=== PATIENT | female | born 1995 | race Caucasian/White ===

== ENCOUNTER 2017-01-27 21:19 | Outpatient (CLI) | payer MEDICAID, OTHER ==
[2017-01-27 22:28] LABS: ADD UMIC YES; UR ASCORBIC ACID NEGATIVE (NEGATIVE); UR BACTERIA FEW /HPF (NONE SEEN); UR BILIRUBIN (Dip) NEGATIVE (NEGATIVE); UR BLOOD (Dip) NEGATIVE (NEGATIVE); UR CLARITY CLOUDY (CLEAR); UR COLOR YELLOW (YELLOW); UR GLUCOSE (Dip) NEGATIVE (NEGATIVE); UR KETONES (Dip) NEGATIVE (NEGATIVE); UR LEUKOCYTE ESTERASE (Dip) 1+ Leu/ul (NEGATIVE); UR MUCUS FEW /HPF (NONE SEEN); UR NITRITE (Dip) POSITIVE (NEGATIVE); UR RBC 2 /HPF (0-5); UR SQUAMOUS EPITHELIAL CELL FEW /HPF (FEW); UR TOTAL PROTEIN (Dip) NEGATIVE (NEGATIVE); UR UROBILINOGEN (Dip) NEGATIVE (NEGATIVE)
--- NOTE | 2017-01-27 22:34 | RADRPT ---
AMENDMENT: 01/28/2017 12:49:42 AM Anthony Moctezuma M.D IVA: 18.0 cm PROCEDURE: US OB. CLINICAL INDICATION: labor at 27 weeks gestational age. TECHNIQUE: Multiple sonographic images of the uterus were obtained. Transvaginal sonogra phy of the cervix was also performed. The images were reviewed on a PACS workstation. COMPARISON: No prior studies are available for comparison. FINDINGS: There is a single live intrauterine gestation. heart rate is 146 beats per minute. Measurements were made in order to determine age. The results are as follows: BPD = 8.21 cm. HC = 29.73 cm. AC = 28.69 cm. FL = 6.43 cm. Estimated weight is 2074 +/- 311 grams. LMP growth percentile is greater than 97 %. Cervical length is 2.0 cm. Menstrual age by ultrasound dates is 33 weeks 0 days. The estimated date of delivery is 03/17/2017. Position is breech and placenta is anterior grade II. There is no evidence for an abruption or place nta previa. IMPRESSION: 1. Single live intrauterine gestation of 33 weeks 0 days menstrual age by ultrasound dates. 2. The estimated date of delivery is 03/17/2017. 3. Cervical length is 2.0 cm. RPTAT: QQ .Anthony Moctezuma MD, MD Date Time Electronically viewed and signed by .Anthony Moctezuma MD, on 01/28/2017 00:50 .R/
[2017-01-27 22:50] LABS: BARBITURATES Negative (NEGATIVE); BENZODIAZEPINES Negative (NEGATIVE); CANNABINOIDS Negative (NEGATIVE); COCAINE Negative (NEGATIVE); OPIATES Negative (NEGATIVE)
[2017-01-27] MEDS ORDERED: NIFEdipine 10 MG CAP PO ONE (23:30)
--- NOTE | 2017-01-28 00:12 | QN ---
Documentation Comment ipu 27 weeks g1 poor care LOF vss exam wnl rom neg uti a/p iup 33 weeks uti-macrobid dc home office monday CLYDE CINTRON MD Jan 28, 2017 00:12
--- NOTE | 2017-01-28 01:24 | TRIAGE ---
OB Triage Datetime Report Generated by CPN: 01/28/2017 01:24 Datetime: 01/28/2017 01:09 EGA: 33.0 Datetime: 01/27/2017 21:30 Time of Arrival: 01/27/2017 21:09 EGA: 27.1 Arrived By: Wheelchair Arrived From: Home Chief Complaint: c/o "large gush fluid x1 at 0545" and upper abd pain. Denies hx problems th is but states only 1 visit 3 months ago d/t clinic not giving appts though called Movement: Present Contractions: Denies/Absent Rupture of Membranes: Unsure Vaginal Bleeding: None Vaginal Discharge: Present Recent Sexual Intercouse: Denies Abdominal Trauma: Not Applicable Patient Complaints: Other Time Provider Notified: 01/27/2017 21:40 Provider Notified: Dr Smith Initial Plan: EFM,UA,ROM+, EFW,IVA,SVE, urine tox
== END 2017-01-28 00:52 | disposition home or self-care (01) ==
LOC: OBT 21:19 → L-D 21:21 → OBT 01-28 00:52
DX: O23.42 Unspecified infection of urinary tract in pregnancy, second trimester (principal); Z3A.27 27 weeks gestation of pregnancy
CPT/HCPCS: 76815; 76817; 80307; 81001; 84112; G0463

== ENCOUNTER 2017-03-03 16:10 | Outpatient (CLI) | payer MEDICAID ==
[~2017-03-03] VITALS: Ht 157.5 cm; Wt 65.4 kg
[2017-03-03 16:26] VITALS: Ht 157.5 cm; Wt 65.4 kg
[2017-03-03 16:27] VITALS: BP 124/66; PULSE 93; RESP 20
--- NOTE | 2017-03-03 16:39 | RADRPT ---
PROCEDURE: Obstetrical ultrasound CLINICAL INDICATION: Size and dates, no care TECHNIQUE: Multiple sonographic images of the pelvis were obtained. The images were reviewed on a PACS workstation. COMPARISON: None FINDINGS: The cervix is not well visualized. There is a single viable intrauterine gestation. Cardiac activity is present with 139 beats per minute. There is a breech presentation. The placenta is anterior. There is no evidence for an abruption or placenta previa. There is a subjectively normal amount of amniotic fluid. Measurements were made in order to determine age. The results are as follows (cm): BPD =9.25 HC =33.11 AC =33.70 FL =7.28 Estimated gestational age by ultrasound of approximately 37 weeks, 4 days. The estimated date of delivery by ultrasound is 03/20/2017. Estimated gestational age by LMP of approximately 38 weeks, 0 days. The estimated date of delivery by LMP is 03/17/2017. EFW = 3238 grams (50th percentile) The three-vessel cord is visualized and without abnormality. IMPRESSION: Single viable intrauterine gestation of approximately 37 weeks, 4 days . The estimated date of delivery is 03/20/2017 . Dating by ultrasound is within 3 days of dating by LMP. Breech presentation. Estimated weight is in the 50th percentile. RPTAT: EE Physician Chayo Date Time Electronically viewed and signed by Physician Chayo on 03/03/2017 16:38 /
--- NOTE | 2017-03-03 16:39 | RADRPT ---
PROCEDURE: US OB biophysical profile. CLINICAL INDICATION: evaluation TECHNIQUE: Multiple sonographic images of the pelvis were obtained. The images were reviewed on a PACS workstation. COMPARISON: No prior studies are available for comparison. FINDINGS: There is a single viable intrauterine gestation. Cardiac activity is present with 143 beats per min parul. There is a breech presentation. The placenta is anterior. There is no evidence of placental abruption. There is a normal amount of amniotic fluid with an IVA = 12.9 cm. Biophysical profile: movement 2/2 tone 2/2. breathing 2/2 IVA 2/2 Total 12/13 RPTAT: AA . IMPRESSION: Normal biophysical profile. Breech presentation. Physician Chayo Date Time Electronically viewed and signed by Physician Chayo on 03/03/2017 16:39 RA/
[2017-03-03] MEDS ORDERED: PNV11TAB PO (16:42)
--- NOTE | 2017-03-03 17:17 | PN ---
Triage Information Date/Time 03/03/2017 1700 Reason for visit: IUGR Weeks of Gestation 38+ /Para Diabetes: none Objective Vital Signs Date Time Temp Pulse Resp B/P Pulse Ox O2 Delivery O2 Flow Rate FiO2 03/03/17 16:27 98.5 93 20 124/66 Room Air Heart Rate: 140's Heart Rate Comments Reactive Contractions: None Exam differed Results/Medications Imaging Results Single viable intrauterine gestation of approximately 37 weeks, 4 days . The estimated date of delivery is 03/20/2017 . Dating by ultrasound is within 3 days of dating by LMP. Disposition: Discharge Assessment/Plan Follow up in clinic JUS TORRES MD Mar 03, 2017 17:17
--- NOTE | 2017-03-03 18:01 | TRIAGE ---
OB Triage Datetime Report Generated by CPN: 03/03/2017 18:01 Datetime: 03/03/2017 17:08 Stage of : OB Triage Datetime: 03/03/2017 16:55 Stage of : OB Triage Datetime: 03/03/2017 16:47 Stage of : OB Triage Datetime: 03/03/2017 16:38 Stage of : OB Triage Assessment Type: Triage Maternal Assessment Level of Consciousness: Fully Conscious DTR's/Clonus: DTRs 2+; No Clonus Headache: Denies Blurred Vision: No Respiratory Effort: Unlabored; Regular Rhythm; Equal Expansion Breath Sounds, Left: Clear and Equal Breath Sounds, Right: Clear and Equal Nausea/Vomiting: Denies RUQ Epigastric Pain: Denies Facial Edema: None Temperature Route: Axillary Fall Risk Assessment History of Falling: (0) No Secondary Diagnosis: (0) No Ambulatory Aid: (0) Bedrest/Nurse Assist IV Therapy: (0) No Gait: (0) Normal/Bedrest/Immobile Mental Status: (0) Oriented to Own Ability Fall Score: 0 Fall Risk Score Definition: No Risk: No action required Labor Evaluation Frequency: 0 Monitor Mode: External Pattern: Normal: <= 5 Contractions in 10 Minutes Resting Tone [place]: Relaxed Heart Rate FHR Baseline Rate: 135 Monitor Mode: External US Variability: Moderate 6-25 bpm Accelerations: 10X10 Decelerations: None Category: Category I Pain Assessment Pain Scale: 0 Pain Presence: None/Denies Pain Type: N/A Pain Goal: 3 Pain Relief Measures: Comfort Measures Datetime: 03/03/2017 16:36 Time of Arrival: 02/24/2017 16:00 EGA: 37.0 Arrived By: Ambulatory Arrived From: Home Chief Complaint: SENT IN FROM DR OFFICE NO PNC, BPP, EFW, DENIES LEAKING, BLEEDING, OR UC'S Movement: Present Contractions: Denies/Absent Rupture of Membranes: Denies Vaginal Bleeding: None Vaginal Discharge: Denies Recent Sexual Intercouse: Yes Abdominal Trauma: Not Applicable Patient Complaints: None Time Provider Notified: 03/03/2017 17:10 Provider Notified: dell Initial Plan: MONITOR, BPP, EFW Datetime: 01/28/2017 01:09 EGA: 33.0 Datetime: 01/28/2017 00:41 Stage of : OB Triage Monitor Mode: External Quality: Mild Pattern: Normal: <= 5 Contractions in 10 Minutes Resting Tone [place]: Relaxed Heart Rate FHR Baseline Rate: 140 Monitor Mode: External US FHR Baseline Changes: No Baseline Change Variability: Moderate 6-25 bpm Decelerations: None Category: Category I Pain Assessment Pain Scale: 1 Pain Presence: Intermittent Pain Type: Cramping Pain Location: Abdomen Datetime: 01/27/2017 23:43 Stage of : OB Triage Monitor Mode: External Quality: Mild Pattern: Normal: <= 5 Contractions in 10 Minutes Resting Tone [place]: Relaxed Heart Rate FHR Baseline Rate: 140 Monitor Mode: External US FHR Baseline Changes: No Baseline Change Variability: Moderate 6-25 bpm Accelerations: 15X15 Decelerations: None Category: Category I Datetime: 01/27/2017 22:51 Stage of : OB Triage Heart Rate FHR Baseline Rate: 150 Monitor Mode: External US FHR Baseline Changes: No Baseline Change Variability: Moderate 6-25 bpm Accelerations: 15X15 Decelerations: None Category: Category I Datetime: 01/27/2017 22:00 Vaginal Exam Amniotic Fluid Amount: None Amniotic Fluid Odor: None Pool: Negative Nitrazine: Negative Datetime: 01/27/2017 21:55 Stage of : OB Triage Labor Evaluation Frequency: 1-3 Monitor Mode: External Duration (sec)2399: 20-50 Quality: Mild Pattern: Normal: <= 5 Contractions in 10 Minutes Resting Tone [place]: Relaxed Heart Rate FHR Baseline Rate: 150 Monitor Mode: External US FHR Baseline Changes: No Baseline Change Variability: Moderate 6-25 bpm Accelerations: 15X15 Decelerations: None Category: Category I Datetime: 01/27/2017 21:40 Stage of : OB Triage Datetime: 01/27/2017 21:30 Stage of : OB Triage EGA: 27.1 Maternal Assessment Level of Consciousness: Fully Conscious Headache: Denies Blurred Vision: No Nausea/Vomiting: Denies RUQ Epigastric Pain: Denies Facial Edema: None Labor Evaluation Frequency: placed Monitor Mode: External Resting Tone [place]: Relaxed Monitor Mode: External US Comments: FHT 140 Pain Assessment Pain Scale: 8 Pain Presence: Intermittent Pain Type: Cramping Pain Location: Abdomen
== END 2017-03-03 17:20 | disposition home or self-care (01) ==
LOC: OBT 16:10 → L-D 16:12 → OBT 17:20
PROVIDERS: ATTEND Obstetrics & Gynecology
DX: O36.5930 Maternal care for other known or suspected poor fetal growth, third trimester, not applicable or unspecified (principal); Z3A.38 38 weeks gestation of pregnancy
CPT/HCPCS: 76815; 76818; Z7500; G0463

== ENCOUNTER 2017-03-31 11:09 | Inpatient (IN) | payer MEDICAID ==
[~2017-03-31] VITALS: Ht 157.5 cm; Wt 66.4 kg
[~2017-03-31 11:09] MED LIST: PNV11TAB PO
[2017-03-31 11:31] VITALS: Ht 157.5 cm; Wt 66.4 kg
[2017-03-31 11:32] VITALS: BP 129/68; PULSE 86
[2017-03-31] MEDS ORDERED: LACTATED RINGER'S 1,000 ML IV SCH (12:14)
[2017-03-31] MEDS ORDERED: MISOPROSTOL 200 MCG TAB PR PRN ×3 (12:30→22:00)
[2017-03-31] MEDS ORDERED: LIDOCAINE 1% (MPF) 30 ML INJ INJ PRN (12:30)
[2017-03-31] MEDS ORDERED: LACTATED RINGER'S 1,000 ML IV PRN (12:30)
[2017-03-31] MEDS ORDERED: METHYLERGONOVINE 0.2 MG INJ IM PRN ×3 (12:30→22:00)
[2017-03-31] MEDS ORDERED: CARBOPROST 250 MCG INJ IM PRN ×3 (12:30→22:00)
[2017-03-31] MEDS ORDERED: BUTORPHANOL 2 MG INJ IV PRN ×2 (12:30)
[2017-03-31] MEDS ORDERED: OXYTOCIN 30 UNITS/LR 500 ML IV SCH ×5 (12:30→15:30)
[2017-03-31] MEDS ORDERED: OXYTOCIN 30 UNITS/LR 500 ML IV PRN ×3 (12:30→22:00)
--- NOTE | 2017-03-31 13:40 | RADRPT ---
PROCEDURE: US evaluation of position. CLINICAL INDICATION: Uncertain position. TECHNIQUE: Multiple sonographic images of the gravid uterus were obtained utilizing khan-scale radha ging. Sagittal and transverse images were obtained. The images were reviewed on a PACS workstation . The position was determined. COMPARISON: 03/03/2017. FINDINGS: There is a single live intrauterine . heart rate is 141 beats per minute. Position is breech and placenta is anterior grade II with no abruption or previa. There is no placenta previa or abruption. IMPRESSION: 1. position is breech. RPTAT: QQ .Asad May MD, MD Date Time Electronically viewed and signed by .Asad May MD, on 03/31/2017 13:40 .R/
[2017-03-31] MEDS ORDERED: TERBUTALINE 1 ML ONE (14:02)
[2017-03-31 14:12] LABS: INR 0.89; PT RATIO 0.9
[2017-03-31] MEDS ORDERED: CITRIC ACID/SODIUM CITRATE 15 ML CUP ONE (14:25)
[2017-03-31 14:29] LABS: BASOPHILS % 0.2 % (0.0-2.0); EOSINOPHILS # 0.1 10^3/ul (0.0-0.5); EOSINOPHILS % 0.4 % (0.0-7.0); HEMATOCRIT 33.2 % (37.0-47.0); HEMOGLOBIN 10.8 g/dl (12.0-16.0); LYMPHOCYTES # 2.3 10^3/ul (0.8-2.9); LYMPHOCYTES % 16.6 % (15.0-51.0); MEAN CORPUSCULAR HEMOGLOBIN 27.1 pg (29.0-33.0); MEAN CORPUSCULAR HGB CONC 32.5 g/dl (32.0-37.0); MEAN CORPUSCULAR VOLUME 83.4 fl (82.0-101.0); MEAN PLATELET VOLUME 10.6 fl (7.4-10.4); MONOCYTE # 0.8 10^3/ul (0.3-0.9); NEUTROPHIL # 10.5 10^3/ul (1.6-7.5); NEUTROPHILS % 76.3 % (39.0-77.0); PLATELET COUNT 274 10^3/UL (140-415); RED BLOOD COUNT 3.98 10^6/ul (4.20-5.40); RED CELL DISTRIBUTION WIDTH 15.2 % (11.5-14.5); WHITE BLOOD COUNT 13.8 10^3/ul (4.8-10.8)
[2017-03-31] MEDS ORDERED: CITRIC ACID/SODIUM CITRATE 15 ML CUP PO ONE ×2 (14:30→15:30)
[2017-03-31] MEDS ORDERED: CEFAZOLIN 2 GM/50 ML (PMX) 50 ML IV SCH (14:30)
[2017-03-31] MEDS ORDERED: ONDANSETRON 4 MG INJ ONE (15:13)
[2017-03-31] MEDS ORDERED: METOCLOPRAMIDE 10 MG INJ ONE (15:13)
[2017-03-31] MEDS ORDERED: morphine SULFATE/PF (10 MG/10 ML) INJ ONE (15:13)
[2017-03-31] MEDS ORDERED: KETOROLAC 30 MG INJ ONE (15:13)
[2017-03-31] MEDS ORDERED: TERBUTALINE 1 MG/ML INJ SC ONE (15:30)
[2017-03-31] MEDS ORDERED: PHENYLephrine (100 MCG/ML) 5ML SYG ONE (15:47)
[2017-03-31] MEDS ORDERED: FENTAnyl 50 MCG/ML VIAL ONE (16:09)
[2017-03-31] MEDS ORDERED: PROPOFOL 20 ML ONE (16:15)
--- NOTE | 2017-03-31 16:34 | HP ---
Date/Time of Note Date/Time of Note DATE: 03/31/17 TIME: 16:31 OB - History Hx of Present Free Text/Dictation 22-year-old female 1 para 0 at 38 weeks and 4 days gestation admitted complaining of labor pain started a few hours prior to admission Had spontaneous rupture of membranes in hospital Had known breech presentation prior to this admission Chief Complaint: Labor pains Estimated Due Date: Apr 10, 2017 : 1 Para: 0 Care: Good Care Ultrasounds: Normal mid trimester US Obstetrical Complications: None Medical Complications: None Past Family/Social History * Past Medical, Surgical, Family and Obstetric Histories reviewed from chart. Blood Type: O+ Rubella: immune RPR/VDRL: Negative GBS Status: Unknown HBsAG: Negative OB Admission Exam Vital Signs Vital Signs Vital Signs Date Time Temp Pulse Resp B/P Pulse Ox O2 Delivery O2 Flow Rate FiO2 03/31/17 11:32 98.1 86 129/68 Physical Exam HEENT: WNL Heart: Rhythm Normal Lungs: Clear, Equal Abdomen: WNL Extremities: Normal Reflexes: Normal Cervical Dilatation: 3cm Effacement: 75% Station: -3 Membranes: Ruptured Amniotic Fluid: Thick Meconium Heart Rate: 140's Accelerations: Accelerations Present Decelerations: No Decelerations Varibility: Moderate Contractions on Admission: < 5 Minutes Apart Date/Time Contractions Began: April 01, 2017 Frequency of Contractions: Every 3 4 minute Duration: Over 36 Intensity: Moderate Last 72 hours Lab Results CBC & BMP 03/31/17 13:26 OB Assessment/Plan Other Assessment: Breech presentation at term. Labor pains Spontaneous rupture of membranes Other plan: Proceed with primary delivery JUS TORRES MD Mar 31, 2017 16:34
--- NOTE | 2017-03-31 16:38 | OPR ---
Operative Report Planned Procedure Procedure date Mar 31, 2017 Procedure(s) Primary section Performed by see signature line Chemistry Technologist Dr. Quiñonez Anesthesiologist: MYLENE MARTINEZ MD Pre-procedure diagnosis Term gestation Patient presented Labor pains Continuous rupture of membrane Anesthesia Type: spinal Post-Procedure Post-procedure diagnosis Status post repeat Findings Live Baby in alexander breech presentation Thick meconium staining of amniotic fluid Estimated Blood Loss: 500 - 600 mls Specimen(s) none Grafts/Implant(s) none Complication(s) none Pt Condition post procedure: stable Disposition: PACU Procedure Description Under satisfactory anaesthesia a Pfannenstiel incision was made two fingerbreadth above and parallel to the symphysis of pubis. Incision was extended laterally to the border of the Recti muscles on either sides. Incision was carried down with sharp and blunt dissection until fascia was reached. Anterior Recti muscle fascia was incised in mid portion and incision extended laterally to the border of skin incision. Fascia was mobilized from muscle superiorly and Recti muscles were from midline using sharp and blunt dissection. Peritoneum was visualized; Avoiding bowel and bladder it was incised . Incision was extended superiorly and inferiorly. Bladder blade was placed. Posterior peritoneum covering the lower segment of the uterus and lower segment of the uterus were incised. Incision was extended laterally to the border of Round Lig. on either sides and baby was delivered via total. Breech extraction without difficulty. Amniotic fluid appeared meconium stained. Cord blood was obtained and cord had 3 vessels . Placenta was delivered spontaneously and appeared intact and complete. Intrauterine cavity was rubbed with a laparotomy sponge. Uterine incision was closed in 2 layers using running stitches of No1 Monocryl. Hemostasis appeared secure. Ovaries and Fallopian tubes were within normal limits. Announcing needle, lap sponge and instrument count to be correct abdomen was closed in layers as follows: Peritoneum and Recti muscles with running stitches of 20 Vicryl. Fascia with running stitch of No 1 PDS. Subcutaneous tissue with running stitches of 20 Chromic and skin was closed using alexandra. Patient tolerated the procedure well and was transferred to [facility] in good condition. JUS TORRES MD Mar 31, 2017 16:38
[2017-03-31] MEDS ORDERED: DIPHENHYDRAMINE 50 MG INJ IV PRN ×2 (17:00)
[2017-03-31] MEDS ORDERED: morphine (1 MG/ML) 10ML SYRINGE IV PRN ×3 (17:00)
[2017-03-31] MEDS ORDERED: morphine 4 MG/ML VIAL IV PRN (17:00)
[2017-03-31] MEDS ORDERED: NALOXONE (0.4 MG/ML) INJ IV PRN (17:00)
[2017-03-31] MEDS ORDERED: morphine 2 MG INJ IV PRN ×2 (17:00)
[2017-03-31] MEDS ORDERED: ONDANSETRON 4 MG INJ IV PRN ×2 (17:00)
[2017-03-31] MEDS: KETOROLAC 30 MG INJ IV PRN (17:48)
[2017-03-31 20:20] VITALS: BP 133/67; PULSE 90; RESP 20
[2017-03-31 21:30] VITALS: BP 126/69; PULSE 88; RESP 19
[2017-03-31] MEDS ORDERED: NA PHOSPHATE/BIPHOS 133 ML ENEMA PR PRN (22:00)
[2017-03-31] MEDS ORDERED: LANOLIN 7 GM TUBE TOP PRN (22:00)
[2017-03-31] MEDS: CEFAZOLIN 2 GM/50 ML (PMX) 50 ML IV SCH (22:15)
[2017-04-01] VITALS: BP 121/59; PULSE 89; RESP 20
[2017-04-01] MEDS: LACTATED RINGER'S 1,000 ML IV SCH ×3 (00:24→13:37)
[2017-04-01 04:00] VITALS: BP 98/56; PULSE 90; RESP 20
[2017-04-01] MEDS: KETOROLAC 30 MG INJ IV PRN ×2 (04:23→12:21)
[2017-04-01] MEDS: CEFAZOLIN 2 GM/50 ML (PMX) 50 ML IV SCH ×2 (05:37→13:32)
[2017-04-01 08:15] VITALS: BP 111/62; PULSE 86
[2017-04-01] MEDS: SENNA/DOCUSATE NA (8.6MG/50MG) TAB PO SCH ×2 (08:33→21:32)
[2017-04-01] MEDS ORDERED: BISACODYL 10 MG SUPP PR ONE (10:00)
[2017-04-01 10:02] LABS: BASOPHILS % 0.1 % (0.0-2.0); EOSINOPHILS % 0.4 % (0.0-7.0); HEMOGLOBIN 8.1 g/dl (12.0-16.0); LYMPHOCYTES % 18.9 % (15.0-51.0); MEAN CORPUSCULAR HEMOGLOBIN 27.5 pg (29.0-33.0); MEAN CORPUSCULAR HGB CONC 32.4 g/dl (32.0-37.0); MEAN CORPUSCULAR VOLUME 84.7 fl (82.0-101.0); MEAN PLATELET VOLUME 10.6 fl (7.4-10.4); MONOCYTE # 0.7 10^3/ul (0.3-0.9); MONOCYTES % 6.8 % (0.0-11.0); NEUTROPHIL # 7.7 10^3/ul (1.6-7.5); NEUTROPHILS % 73.2 % (39.0-77.0); PLATELET COUNT 213 10^3/UL (140-415); RED BLOOD COUNT 2.95 10^6/ul (4.20-5.40); RED CELL DISTRIBUTION WIDTH 15.5 % (11.5-14.5); WHITE BLOOD COUNT 10.5 10^3/ul (4.8-10.8)
[2017-04-01] MEDS: HYDROCODONE/APAP (5/325) TAB PO PRN ×2 (16:23→20:00)
--- NOTE | 2017-04-01 16:53 | PN ---
Date/Time of Note Date/Time of Note DATE: 04/01/17 TIME: 16:37 Assessment/Plan VTE Prophylaxis VTE Prophylaxis Intervention: ambulation Lines/Catheters IV Catheter Type (from Nrsg): Peripheral IV Assessment/Plan Assessment/Plan Status post postop day 1 We will advance diet and monitor vital signs Subjective 24 Hr Interval Summary No bowel movement Passing flatus Constitutional: BM, ambulates, flatus, improved, no complaints, urine output Pain Control: well controlled Exam/Review of Systems Vital Signs Vitals Vital Signs Date Time Temp Pulse Resp B/P Pulse Ox O2 Delivery O2 Flow Rate FiO2 04/01/17 08:15 98.5 86 111/62 Room Air 04/01/17 05:27 95 21 04/01/17 04:00 20 Intake and Output 03/31/17 03/31/17 04/01/17 15:00 23:00 07:00 Intake Total 550 ml 1700 ml Output Total 225 ml 600 ml Balance 325 ml 1100 ml Exam Free Text/Dictation Abdomen soft not distended and bowel sounds present, slightly tender around incision Incision is covered Constitutional: alert, oriented, well developed Psych: nl mood/affect, no complaints Head: atraumatic, normocephalic Eyes: EOMI, nl conjunctiva, nl lids, nl sclera ENMT: mucosa pink and moist, nl external ears & nose, nl lips & teeth, nl nasal mucosa & septum Neck: non-tender, supple Respiratory: clear to auscultation, normal air movement Cardiovascular: nl pulses, regular rate and rhythm Gastrointestinal: nl liver, spleen, non-tender, soft Drains None Musculoskeletal: nl extremities to inspection, nl gait and stance Extremities: normal pulses Neurological: EDUCATIONAL TECHNOLOGY COORDINATOR II-XII intact, nl mental status, nl speech, nl strength Skin: nl turgor, rash or lesions Lymph: nl lymph nodes Results Result Diagram: 04/01/17 0742 JUS TORRES MD Apr 01, 2017 16:52
[2017-04-01 16:55] VITALS: BP 109/63; PULSE 101; RESP 18
[2017-04-01] MEDS: CLINDAMYCIN 300 MG CAP PO SCH (18:15)
[2017-04-01 20:00] VITALS: BP 110/64; PULSE 91; RESP 18
--- NOTE | 2017-04-01 21:12 | PN ---
Date/Time of Note Date/Time of Note DATE: 04/01/17 TIME: 21:10 Assessment/Plan VTE Prophylaxis VTE Prophylaxis Intervention: ambulation Lines/Catheters IV Catheter Type (from Nrsg): Peripheral IV Subjective 24 Hr Interval Summary Free Text/Dictation Anesthesia note A 22 year female s/p duramorph pod #1 is doing fine pain iscontrolled. no n/ v, headache, back pain or anerve deficit.back is clean. care per surgery Exam/Review of Systems Vital Signs Vitals Vital Signs Date Time Temp Pulse Resp B/P Pulse Ox O2 Delivery O2 Flow Rate FiO2 04/01/17 16:55 99.3 101 18 109/63 Room Air 04/01/17 05:27 95 21 Intake and Output 03/31/17 03/31/17 04/01/17 15:00 23:00 07:00 Intake Total 550 ml 1700 ml Output Total 225 ml 600 ml Balance 325 ml 1100 ml Results Result Diagram: 04/01/17 0742 Results 24 hrs Laboratory Tests Test 04/01/17 07:42 White Blood Count 10.5 # Red Blood Count 2.95 #L Hemoglobin 8.1 #L Hematocrit 25.0 #L Mean Corpuscular Volume 84.7 Mean Corpuscular Hemoglobin 27.5 L Mean Corpuscular Hemoglobin Concent 32.4 Red Cell Distribution Width 15.5 H Platelet Count 213 # Mean Platelet Volume 10.6 H Neutrophils % 73.2 Lymphocytes % 18.9 Monocytes % 6.8 Eosinophils % 0.4 Basophils % 0.1 Nucleated Red Blood Cells % 0.0 Neutrophils # 7.7 H Lymphocytes # 2.0 Monocytes # 0.7 Eosinophils # 0.0 Basophils # 0.0 Nucleated Red Blood Cells # 0.0 Medications Medications Current Medications Lactated Ringer's (Lr) 1,000 ml @ 125 mls/hr Q8H IV Last administered on 04/01 08:34; Admin Dose 125 MLS/HR; Start 03/31/17 at 21:37 Ibuprofen (Motrin) 800 mg Q8 PO ; Start 04/01/17 at 22:00 Simethicone (Mylicon) 160 mg Q8H PRN PO DISTENSION/GAS/BLOATING Last administered on 04/01/17 16:23; Admin Dose 160 MG; Start 03/31/17 at 22:00 Senna/Docusate Sodium (Senokot-S) 1 tab BID PO Last administered on 04/01/17 08:33; Admin Dose 1 TAB; Start 04/01/17 at 09:00 Sodium Biphosphate/ Sodium Phosphate (Fleet Enema) 133 ml DAILY PRN SC CONSTIPATION; Start 03/31/17 at 22:00 Diphtheria/ Tetanus/Acell Pertussis 0.5 ml 0.5 ml ONCE ONCE IM* ; Start at 09:00; Stop 04/03/17 at 09:01 Oxytocin/Lactated Ringer's 500 ml @ 0 mls/hr ONCE PRN IV For Hemorrhage Management; Start 03/31/17 at 22:00 Methylergonovine Maleate (Methergine) 0.2 mg ONCE PRN IM VAGINAL BLEEDING; Start 03/31/17 at 22:00 Carboprost Tromethamine (Hemabate) 250 mcg ONCE PRN IM VAGINAL BLEEDING; Start 03/31/17 at 22:00 Misoprostol (Cytotec) 1,000 mcg ONCE PRN SC VAGINAL BLEEDING; Start 03/31/17 at 22:00 Acetaminophen/ Hydrocodone Bitart ([place] (5/325)) 2 tab Q4H PRN PO PAIN LEVEL 1 -5 Last administered on 04/01/17 20:00; Admin Dose 2 TAB; Start 04/01/17 at 17:00 Oxycodone/ Acetaminophen (Percocet (5/ 325)) 2 tab Q4H PRN PO PAIN LEVEL 6-10; Start 04/01/17 at 17:00 Clindamycin HCl (Cleocin) 300 mg Q6 PO Last administered on 04/01/17 18:15; Admin Dose 300 MG; Start 04/01/17 at 18:00 MYLENE MARTINEZ MD Apr 01, 2017 21:12
[2017-04-01] MEDS: IBUPROFEN 800 MG TAB PO SCH (21:32)
[2017-04-02] MEDS: CLINDAMYCIN 300 MG CAP PO SCH ×4 (00:21→17:55)
[2017-04-02 04:00] VITALS: BP 122/74; PULSE 76; RESP 18
[2017-04-02] MEDS: OXYCODONE/ACETAMINOPHEN (5/325) TAB PO PRN ×2 (05:10→14:32)
[2017-04-02] MEDS: IBUPROFEN 800 MG TAB PO SCH ×3 (05:10→21:44)
[2017-04-02 08:00] VITALS: BP 111/68; PULSE 85; RESP 18
[2017-04-02] MEDS: SENNA/DOCUSATE NA (8.6MG/50MG) TAB PO SCH ×2 (10:19→21:44)
[2017-04-02 16:00] VITALS: BP 126/68; PULSE 82; RESP 16
[2017-04-02 20:45] VITALS: BP 108/60; PULSE 80; RESP 19
[2017-04-03 04:15] VITALS: BP 122/71; PULSE 72; RESP 19
[2017-04-03] MEDS: HYDROCODONE/APAP (5/325) TAB PO PRN (04:27)
[2017-04-03] MEDS: IBUPROFEN 800 MG TAB PO SCH ×2 (05:54→15:00)
[2017-04-03] MEDS: CLINDAMYCIN 300 MG CAP PO SCH ×3 (05:54→11:45)
[2017-04-03 08:00] VITALS: BP 114/57; PULSE 79; RESP 16
[2017-04-03] MEDS ORDERED: DIPHTH/TET/ACEL PERTUSS (ADULT) 0.5 ML VIAL IM* ONE (09:00)
[2017-04-03] MEDS: SENNA/DOCUSATE NA (8.6MG/50MG) TAB PO SCH (09:05)
--- NOTE | 2017-04-03 09:34 | QN ---
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
--- NOTE | 2017-04-03 09:36 | DS ---
Date/Time of Note Date/Time of Note DATE: 04/03/17 TIME: 09:35 Obstetrical Discharge Record Final Diagnosis Final Diagnosis: Term delivered Section Section: Repeat Condition on Discharge Physical Assessment Voiding: Yes Bowel Movement: Yes Breast: Soft, non-tender Fundus: Firm Calf Tenderness: No Patient Condition: Good Copies To: CC: JUS TORRES MD, BAHAREH MD Apr 03, 2017 09:36
[2017-04-03 15:48] VITALS: BP 110/60; PULSE 78; RESP 18
--- NOTE | 2017-04-03 16:05 | DS ---
Date/Time of Note Date/Time of Note DATE: 04/03/17 TIME: 16:04 Discharge Summary Admission/Discharge Info Admit Date/Time Mar 31, 2017 at 12:10 Discharge Date/Time April 03, 2017 Discharge Diagnosis Status post Patient Condition: Good Procedures Primary section Hx of Present Illness 23-year-old female underwent primary for breech presentation Hospital Course Uncomplicated Home Meds Reported Medications [id number] ( 19) 1 Each Tablet, 1 TAB PO DAILY, TAB 03/03/17 Follow-up Plan 2 days in clinic for staple removal Primary Care Provider Care Physician No Primary Time spent on discharge: > 30 minutes JUS TORRES MD Apr 03, 2017 16:05
--- NOTE | 2017-04-03 16:06 | PD.PPDC ---
LEAD CUSTODIAN Discharge Instruction Provider Information Physician Information 23-year-old female had primary delivery Diagnosis Final Diagnosis: Status post Condition Patient Condition: Good Diet Diet: Resume Regular Diet Activity/Restrictions Activity: September Shower Restrictions: No Exercising No Lifting Nothing in the Vagina Return to Work or School: Jun 05, 2017 Follow-up Follow-up with Physician: 2, 3, Day/Days (In clinic for staple removal) Return to clinic for OB Instructions: Breast Tenderness Depression Comment: Pelvic rest no heart activity for 2 months JUS TORRES MD Apr 03, 2017 16:06
== END 2017-04-03 17:20 | disposition home or self-care (01) | DRG 766 ==
LOC: OBT 11:09 → L-D 11:10 → OBT 12:10 → L-D 12:10 → PP1 20:24
PROVIDERS: ADMIT Obstetrics & Gynecology; ATTEND Obstetrics & Gynecology
PROC: 10D00Z1 Extraction of Products of Conception, Low, Open Approach (ICD-10-PCS; principal; 2017-03-31 16:00)
DX: O32.1XX0 Maternal care for breech presentation, not applicable or unspecified (principal); O77.0 Labor and delivery complicated by meconium in amniotic fluid; Z3A.38 38 weeks gestation of pregnancy; Z37.0 Single live birth
CPT/HCPCS: 76815; 85025; 85610; 85730; 86592; 86885; 86900; 86901; 87340; 90715; 94760; 99464; G0463; J0690; J1885; J2274; J2370; J2405; J2590; J2765; J3010; J3105; J7120

== ENCOUNTER 2017-05-19 10:58 | Emergency (ER) | END 2017-05-19 14:53 | disposition home or self-care (01) ==